=== PATIENT | female | born 1970 | race Caucasian/White ===

== ENCOUNTER → 2022-03-23 | Outpatient (CLI) | payer MEDICARE, OTHER | LOC: KOH-I 12:52 | DX: M25.561 Pain in right knee (principal); M17.11 Unilateral primary osteoarthritis, right knee; S83.241A Other tear of medial meniscus, current injury, right knee, initial encounter; M25.761 Osteophyte, right knee; X58.XXXA Exposure to other specified factors, initial encounter | CPT/HCPCS: 73721 ==